=== PATIENT | female | born 1965 | race African-American/Black ===

== ENCOUNTER 2019-11-20 13:46 | Emergency (ER) | payer OTHER ==
[~2019-11-20] VITALS: Ht 170.2 cm; Wt 93.4 kg
[~2019-11-20 13:46] MED LIST: ORPH100T PO; URETRON DS1 TAB PO
== END 2019-11-20 16:59 | disposition home or self-care (01) ==
LOC: ER 13:46
DX: R07.0 Pain in throat (principal)

== ENCOUNTER 2021-06-04 14:47 | Emergency (ER) | payer OTHER ==
[~2021-06-04] VITALS: Ht 170.2 cm; Wt 96.6 kg
== END 2021-06-04 21:04 | disposition home or self-care (01) ==
LOC: ER 14:47
DX: B34.9 Viral infection, unspecified (principal); Z20.822 Contact with and (suspected) exposure to COVID-19

== ENCOUNTER 2021-08-17 13:39 | Emergency (ER) | payer OTHER ==
[~2021-08-17] VITALS: Ht 170.2 cm; Wt 83.9 kg
== END 2021-08-17 17:24 | disposition home or self-care (01) ==
LOC: ER 13:39
DX: M25.562 Pain in left knee (principal)

== ENCOUNTER 2022-01-15 19:00 | Emergency (ER) | payer OTHER ==
[~2022-01-15] VITALS: Ht 170.2 cm; Wt 93.0 kg
== END 2022-01-15 23:29 | disposition home or self-care (01) ==
LOC: ER 19:00
DX: U07.1 COVID-19 (principal); R50.9 Fever, unspecified; R51.9 Headache, unspecified

== ENCOUNTER 2022-07-27 23:19 | Emergency (ER) | payer OTHER ==
[~2022-07-27] VITALS: Ht 170.2 cm; Wt 88.5 kg
[2022-07-28] MEDS ORDERED: PHENAGIL CH TA1 EACH PO (01:09)
[2022-07-28] MEDS ORDERED: DOLOGESIC-DF 51 EACH PO (01:09)
== END 2022-07-28 01:17 ==
LOC: ER 23:19
DX: U07.1 COVID-19 (principal)